=== PATIENT | female | born 1995 | race Two or more races ===

== ENCOUNTER 2017-03-22 10:16 | Inpatient (IN) | payer MEDICAID ==
[2017-03-29] MEDS ORDERED: LIDOCAINE 1% (PRES FREE) 30 ML VIAL ONE (19:22)
[2017-03-29] MEDS ORDERED: MINERAL OIL 25 ML BOT ONE (19:22)
[2017-03-29] MEDS ORDERED: LIDOCAINE Viscous 2% 15 ML UDCUP ONE (19:22)
[2017-03-29] MEDS ORDERED: OXYTOCIN 10 UNITS/ML VIAL ONE (19:22)
[2017-03-29] MEDS ORDERED: OXYTOCIN IN NS 500 ML IV ONE (19:23)
[2017-03-29] MEDS ORDERED: DINOPROSTONE 10 MG SUP VG ONE (19:49)
[2017-03-29 19:57] VITALS: BMI 33.0
--- NOTE | 2017-03-29 20:22 | PCMAN ---
OB Admission Note - History : 3 Term: 2 Livin EDC:: 03/22/17 Gestational Age (weeks): 41 Days (#/7): 0 Admit Cervical Dilation:: 1.5 Admit Cervical Effacement (%):: 60 Admit Station:: -3 Admit Presentaton:: vertex, confirmed by u/s per RN Membrane Status: Intact Contractions: Yes Contraction Frequency:: irregular Heart Rate:: 130 (mod palbo/+accels/no decels) Status:: cat 1 EFW:: 8lb Summary of Course:: Uncomplicated course choroid plexus cyst seen on anatomy scan, resolved on repeat scan at 28w OBHx 06/2014 @ 39w, 7lb7oz 01/2016 @ 41w, 3yg19yo Dating Hx LMP 06/15/16, RAYNE 03/22/17 u/s 11/02/16, 18w6d RAYNE 03/30/17 u/s 12/21/16, 26w1d RAYNE 03/18/17 - Labs Blood Type: O (+) positive Rubella Status: Immune GBS Status: Negative Abnormal Labs: None - Review of Systems Good FM, no LOF, VB, irregular ctx No MORALES, vision changes, epigastric pain, edema - Physical Exam General: Afebrile Psych/Mental Status: Mood/Affect Appropriate, Judgment/Insight Intact Neurological: Grossly Intact, Alert HEENT: EOMI Lungs: Normal Air Movement Cardiovascular: Regular Rate and Rhythm, Normal S1, Normal S2, No Murmur Abdomen: Other (gravid) Extremities: No Edema - Problems (1) , post-term Qualifiers: Post-term type: 40-42 weeks gestation Qualifier Code: (O48.0 ) Post-term Status: Acute Code: O48.0Assessment/Plan: 21 yo @ 41w0d by L=18 presents for postdates IOL. - Unfavorable cervix, cervidil placed for cervical ripening at 1999 - FWB: cat 1 - Pain: desires unmedicated labor - GBS negative - BCM: nexplanon vs IUD
[2017-03-29 21:44] LABS: HEMOGLOBIN 11.8 gm/l (12.0-16.0); MEAN CELL VOLUME 93.3 fl (81.0-99.0); MEAN CORPUSCULAR HEMOGLOBIN 30.6 pg (27.0-31.0); MEAN CORPUSCULAR HGB CONC 32.8 g/dl (33.0-37.0); RED CELL DISTRIBUTION WIDTH 14.4 % (11.5-14.5)
[2017-03-30] MEDS ORDERED: DINOPROSTONE 10 MG SUP VG ONE (01:38)
--- NOTE | 2017-03-30 12:04 | PDOC36 ---
Provider Note Subject: Took over care from Dr. Quesada at 7am. Pt is a 21 yo @ 41 1/7 wks by LMP who was admitted last night for induction of labor for postdates. Cervidil was placed due to an unfavorable cervix, however, this fell out at 01:45am and another Cervidil was placed. FHTs overnight were reassuring. S: pt is having regular contractions and is painful. O: 108/62, 105, 20, 99.2 [place]: q 3min FHTs: 140 baseline, moderate, +accels, -decels SVE @ 01:45: 1.5/60/-3 A/P: 21 yo @ 41 1/7wks here for IOL for postdates with cervical ripening. FHTs reassuring. Pt desires natural labor process if possible. -will remove Cervidil at 13:30 and reassess cervix
[2017-03-30] MEDS ORDERED: OXYTOCIN IN NS 334 ML IV PRN (13:27)
[2017-03-30] MEDS ORDERED: SENNOSIDES 8.6 MG TABLET PO PRN (14:01)
[2017-03-30] MEDS ORDERED: BENZOCAINE/MENTHOL 60 APPLIC/BOT TP PRN (14:01)
[2017-03-30] MEDS ORDERED: DOCUSATE SODIUM 100 MG CAPSULE PO PRN (14:01)
[2017-03-30] MEDS ORDERED: OXYTOCIN IN NS 167 ML IV PRN (14:01)
[2017-03-30] MEDS ORDERED: LANOLIN 50 APPLIC/7G TUBE TP PRN (14:01)
[2017-03-30] MEDS ORDERED: HYDROCODONE/ACETAMINOPHEN 5/325MG TABLET PO PRN (14:01)
[2017-03-30] MEDS ORDERED: MAGNESIUM HYDROXIDE 30 ML UDCUP PO PRN (14:01)
[2017-03-30] MEDS: IBUPROFEN 800 MG TABLET PO PRN ×2 (15:16→22:36)
--- NOTE | 2017-03-30 18:11 | PCMDEL ---
Delivery Note - Labor 1st stage (hr/min):: 7hrs 28 min 2nd stage (hr/min):: 20 min 3rd stage (hr/min):: 4 min Total (hr/min):: 7hrs 52 min Pushed (hr/min):: 7 min - Delivery Delivery (Date): 03/30/17 Delivery (Time): 13:48 Infant Gender: Male Weight: 3.9 kg Presentation: Cephalic Position: OA Umbilical Cord: 3 Vessel, Nuchal Cord Delayed Cord Clamping:: < 1-2 min 1 Minute Total: 9 5 Minute Total: 9 Placenta:: complete EBL:: 250cc Perineum:: intact Anesthesia/Meds:: Cervidil Length ROM:: 20 min Comments:: Vigorous male delivered over intact perineum with a nuchal cord x 1 that was reduced when was partially delivered to chest. Momence was placed on mom's chest. Cord clamping was delayed by 2 min. 30 units of Pitocin were given. The placenta delivered complete with a 3 vessel cord. There were no lacerations. EBL was 250cc.
[2017-03-31 06:10] LABS: HEMATOCRIT 30.7 % (37.0-47.0); HEMOGLOBIN 9.9 gm/l (12.0-16.0)
[2017-03-31 07:23] VITALS: BP 104/59
--- NOTE | 2017-03-31 11:08 | PDOC39B ---
Hospital Course: ADMIT DATE: 03/29/17 DISCHARGE DATE: 03/31/17 ADMISSION DIAGNOSES: IUP at 41weeks IOL due to postdates PROCEDURES: SVDe HISTORY OF PRESENT ILLNESS: 21 year old G3 T2 L2 at 41 weeks 1 days presenting with postdates HOSPITAL COURSE: The patient was admitted for scheduled postdates IOL. Cervidil w as placed then pt progressed to complete and had uncomplicated . Pt desired DC home on PPD#1 By day of discharge the patient is ambulating, eating, voiding, and passing flatus without difficulty. Pain is controlled and lochia is appropriate. She is . - Physical Exam Vital Signs: Temp Pulse Resp BP Pulse Ox 98.2 F 77 16 104/59 96 03/31/17 07:22 03/31/17 07:22 03/31/17 07:22 03/31/17 07:22 03/31/17 07:22 General: Afebrile, No Acute Distress Psych/Mental Status: Mood/Affect Appropriate, Judgment/Insight Intact, Bonding Well Neurological: Grossly Intact, Alert, Normal Speech HEENT: Atraumatic, Mucous membr. moist/pink Lungs: Clear to Auscultation Bilaterally Cardiovascular: Regular Rate and Rhythm Breast: Soft Fundus: Firm, Midline, Below Umbilicus Skin: Normal Color, Warm, Dry, Intact, No Rash - Discharge Diagnosis (1) , post-term Qualifiers: Post-term type: 40-42 weeks gestation Qualifier Code: (O48.0 ) Post-term Status: AcuteAssessment/Plan: s/p IOL w cervidil (2) Spontaneous vaginal delivery Status: AcuteAssessment/Plan: Doing well PPD#1 Routine care and support BF DC home per pt request PP precautions reviewed - Discharge Plan Condition: Good Disposition: Home Prescriptions: Benzocaine/Menthol [DERMOPLAST SPRAY (SHF)] 1 applic TP PRN PRN #1 PRN Reason: Patient Comfort Lanolin [LANOLIN 7 G TUBE (SHF)] 1 applic TP PRN PRN #1 PRN Reason: Sore Nipples Discharge Medications: May take OTC ibuprofen and tylenol. Pt declined Rx for ibuprofen Follow-Up: Pamella Vargas MD [Staff Physician] - In 6 weeks (pt to call to sched)
== END 2017-03-31 17:46 | disposition home or self-care (01) | DRG 775 ==
LOC: EDSTATUS 18:49 → FBC 03-29 18:49
PROVIDERS: ADMIT Family Medicine; ATTEND Family Medicine
PROC: 3E0P7GC Introduction of Other Therapeutic Substance into Female Reproductive, Via Natural or Artificial Opening (ICD-10-PCS; 2017-03-29)
PROC: 10E0XZZ Delivery of Products of Conception, External Approach (ICD-10-PCS; principal; 2017-03-30)
DX: O48.0 Post-term pregnancy (principal); O69.81X0 Labor and delivery complicated by cord around neck, without compression, not applicable or unspecified; Z3A.41 41 weeks gestation of pregnancy; Z37.0 Single live birth